=== PATIENT | male | born 1960 | race Caucasian/White ===

== ENCOUNTER 2019-03-08 14:58 | Inpatient (IN) | payer MEDICAID ==
[~2019-03-08] VITALS: Ht 185.4 cm; Wt 88.6 kg
[~2019-03-08 14:58] MED LIST: ASPI-1265 PO; ATOR10TA PO; CARV-50 PO; LISI-604 PO; NICO-687 TD; SPIR25TA5 PO
[2019-03-08] MEDS ORDERED: heparin 25,000 UNIT/250ml bag 250 ML IV SCH (15:16)
[2019-03-08] MEDS ORDERED: diltiazem 5mg/ml 5ml inj. IV ONE (15:20)
[2019-03-08] MEDS ORDERED: heparin 10,000 units/1 ML INJ IV ONE ×2 (15:20→15:30)
[2019-03-08] MEDS ORDERED: heparin 10,000 units/1 ML INJ IV PRN (15:20)
[2019-03-08] MEDS ORDERED: ondansetron/PF 4mg/2ml inj IV PRN (15:45)
[2019-03-08] MEDS ORDERED: morphine 2 MG/ML inj. syringe IV PRN (15:45)
[2019-03-08] MEDS ORDERED: magnesium hydroxide 30ml (MOM) UD suspension PO PRN (15:45)
[2019-03-08] MEDS ORDERED: acetaminophen 325mg tablet PO PRN (15:45)
[2019-03-08] MEDS ORDERED: mag hydrox/Alum hydrox/simeth 30ml oral suspension PO PRN (15:45)
[2019-03-08] MEDS ORDERED: HYDROcodone/acetaminophen 5mg/325mg tablet PO PRN (15:45)
[2019-03-08 15:53] LABS: PARTIAL THROMBOPLASTIN TIME 40 SECONDS (22-32)
[2019-03-08] MEDS: heparin 25,000 UNIT/250ml bag 250 ML IV SCH (16:01)
[2019-03-08 16:24] LABS: BASOPHILS % (AUTO) 0.2 % (0-1); EOSINOPHILS % (AUTO) 0.1 % (0-6); HEMATOCRIT 41.2 % (42.0-52.0); HEMOGLOBIN 13.9 g/dl (14.0-17.9); LYMPHOCYTES # (AUTO) 1.5 X10'3 (1.1-4.8); LYMPHOCYTES % (AUTO) 15.4 % (21-51); MEAN CORPUSCULAR HEMOGLOBIN 33.8 PG (27.0-31.0); MEAN CORPUSCULAR HGB CONC 33.9 g/dL (33.0-36.5); MEAN CORPUSCULAR VOLUME 99.7 FL (78-98); MEAN PLATELET VOLUME 10.7 FL (7.4-10.4); MONOCYTES # (AUTO) 1.3 X10'3 (0-0.9); MONOCYTES % (AUTO) 13.2 % (2-12); NEUTROPHILS # (AUTO) 7.1 X10'3 (1.8-7.7); NEUTROPHILS % (AUTO) 71.1 % (42-75); PLATELET COUNT 123 X10'3 (140-440); RED BLOOD COUNT 4.13 X10'6 (4.70-6.10); RED CELL DISTRIBUTION WIDTH 13.9 % (11.5-14.5)
--- NOTE | 2019-03-08 16:30 | NUR ---
Patient in room ED 6. I have received report from Vinny RN (ED) and had the opportunity to ask questions and assume patient care.
[2019-03-08] MEDS ORDERED: DIGO125T78 PO (16:35)
[2019-03-08] MEDS ORDERED: ASPI-611 PO (16:35)
[2019-03-08] MEDS ORDERED: NICO-687 TOP (16:35)
[2019-03-08] MEDS ORDERED: CARV25TA2 PO (16:35)
[2019-03-08] MEDS ORDERED: LISI10TA4 PO (16:35)
--- NOTE | 2019-03-08 16:45 | NUR ---
Pt arrived to unit. Pt oriented to room and call light.
[2019-03-08 17:00] VITALS: BP 106/75
[2019-03-08] MEDS: normal saline 1000ml 1,000 ML IV SCH (17:31)
[2019-03-08 17:50] LABS: LARGE PLATELETS FEW; PLATELET ESTIMATE DECREASED
[2019-03-08 18:00] VITALS: BP 110/73
--- NOTE | 2019-03-08 18:36 | NUR ---
Problems reprioritized. Patient report given, questions answered & plan of care reviewed with Lidya GARDUNO.
--- NOTE | 2019-03-08 18:37 | NUR ---
Patient in room PCU 3012. I have received report from Fabrice GARDUNO and had the opportunity to ask questions and assume patient care.
[2019-03-08] MEDS ORDERED: carVEDilol 12.5mg tablet PO SCH (20:00)
--- NOTE | 2019-03-08 21:53 | NUR ---
PTT @ 2200 was 75. Therapeutic range, no change. Still @15ml/hr
[2019-03-08 22:00] VITALS: BP 103/73
[2019-03-09 02:00] VITALS: BP 106/72
[2019-03-09 03:42] LABS: BASOPHILS # (AUTO) 0.1 X10'3 (0-0.2); BASOPHILS % (AUTO) 0.6 % (0-1); EOSINOPHILS % (AUTO) 0.2 % (0-6); HEMATOCRIT 37.7 % (42.0-52.0); HEMOGLOBIN 12.9 g/dl (14.0-17.9); LYMPHOCYTES % (AUTO) 20.9 % (21-51); MEAN CORPUSCULAR HGB CONC 34.4 g/dL (33.0-36.5); MEAN CORPUSCULAR VOLUME 98.8 FL (78-98); MONOCYTES % (AUTO) 11.1 % (2-12); NEUTROPHILS # (AUTO) 6.3 X10'3 (1.8-7.7); NEUTROPHILS % (AUTO) 67.2 % (42-75); PLATELET COUNT 110 X10'3 (140-440); RED BLOOD COUNT 3.81 X10'6 (4.70-6.10); RED CELL DISTRIBUTION WIDTH 13.8 % (11.5-14.5); WHITE BLOOD COUNT 9.4 X10'3 (4.5-11.0)
[2019-03-09 03:55] LABS: ALBUMIN 2.4 G/DL (3.4-5.0); ANION GAP 6 (8-16); BLOOD UREA NITROGEN 13 MG/DL (7-18); BUN/CREATININE RATIO 11.4 (5.4-32.0); CALCIUM 8.3 MG/DL (8.5-10.1); CHLORIDE 103 MMOL/L (99-107); CREATININE 1.14 MG/DL (0.60-1.10); GLUCOSE 131 MG/DL (70-104); POTASSIUM 3.6 MMOL/L (3.5-5.1); SODIUM 133 MMOL/L (135-145); TOTAL CARBON DIOXIDE 24.3 MMOL/L (24-32); eGFR 66 ML/MIN
[2019-03-09 06:00] VITALS: BP 99/65
--- NOTE | 2019-03-09 06:07 | NUR ---
Problems reprioritized. Patient report given, questions answered & plan of care reviewed with Fabrice GARDUNO.
--- NOTE | 2019-03-09 06:10 | NUR ---
Patient in room PCU 3012. I have received report from Lidya GARDUNO and had the opportunity to ask questions and assume patient care.
[2019-03-09] MEDS: normal saline 1000ml 1,000 ML IV SCH (07:43)
[2019-03-09] MEDS: heparin 25,000 UNIT/250ml bag 250 ML IV SCH (07:46)
[2019-03-09] MEDS: aspirin 81mg tablet.DR PO SCH (07:48)
[2019-03-09] MEDS: nicotine 21mg patch - 24 hr TD SCH (07:56)
[2019-03-09] MEDS: lisinopril 10 MG tablet PO SCH (08:00)
[2019-03-09] MEDS: digoxin 125mcg (0.125mg) tablet PO SCH (08:42)
[2019-03-09] MEDS ORDERED: carvedilol 6.25mg tablet PO ONE (09:55)
[2019-03-09 11:00] VITALS: BP 90/58
[2019-03-09] MEDS ORDERED: albuterol 2.5 MG/3 ML nebule NEB PRN (12:05)
[2019-03-09 15:00] VITALS: BP 110/67
[2019-03-09 18:00] VITALS: BP 114/75
--- NOTE | 2019-03-09 18:10 | NUR ---
Problems reprioritized. Patient report given, questions answered & plan of care reviewed with Tenisha GARDUNO.
--- NOTE | 2019-03-09 20:00 | NUR ---
pt has no INR lab value, will be waiting for IRN before giving coumadin
[2019-03-09] MEDS: carvedilol 6.25mg tablet PO SCH (20:13)
[2019-03-09] MEDS ORDERED: warfarin 5mg tablet PO ONE ×2 (21:00→23:10)
[2019-03-09 22:00] VITALS: BP 94/70
--- NOTE | 2019-03-09 22:00 | NUR ---
PTT DVT @2200 was 45 which is therapeutic, no change in rate, heparin still running@ 1500
[2019-03-10] VITALS (8 sets, daily range): BP systolic 80–115; BP diastolic 50–78
[2019-03-10] MEDS: heparin 25,000 UNIT/250ml bag 250 ML IV SCH ×3 (01:21→17:16)
[2019-03-10 05:14] LABS: BASOPHILS % (AUTO) 0.3 % (0-1); EOSINOPHILS % (AUTO) 0.4 % (0-6); HEMATOCRIT 38.2 % (42.0-52.0); HEMOGLOBIN 13.1 g/dl (14.0-17.9); LYMPHOCYTES # (AUTO) 1.8 X10'3 (1.1-4.8); LYMPHOCYTES % (AUTO) 21.3 % (21-51); MEAN CORPUSCULAR HEMOGLOBIN 34.3 PG (27.0-31.0); MEAN CORPUSCULAR HGB CONC 34.4 g/dL (33.0-36.5); MEAN CORPUSCULAR VOLUME 99.8 FL (78-98); MEAN PLATELET VOLUME 10.6 FL (7.4-10.4); MONOCYTES # (AUTO) 1.2 X10'3 (0-0.9); MONOCYTES % (AUTO) 13.6 % (2-12); NEUTROPHILS # (AUTO) 5.5 X10'3 (1.8-7.7); NEUTROPHILS % (AUTO) 64.4 % (42-75); PLATELET COUNT 127 X10'3 (140-440); RED BLOOD COUNT 3.83 X10'6 (4.70-6.10); RED CELL DISTRIBUTION WIDTH 13.5 % (11.5-14.5); WHITE BLOOD COUNT 8.5 X10'3 (4.5-11.0)
[2019-03-10 05:22] LABS: ALBUMIN 2.5 G/DL (3.4-5.0); ANION GAP 7 (8-16); BLOOD UREA NITROGEN 11 MG/DL (7-18); BUN/CREATININE RATIO 10.3 (5.4-32.0); CALCIUM 8.8 MG/DL (8.5-10.1); CHLORIDE 101 MMOL/L (99-107); CREATININE 1.07 MG/DL (0.60-1.10); GLUCOSE 86 MG/DL (70-104); POTASSIUM 4.2 MMOL/L (3.5-5.1); SODIUM 134 MMOL/L (135-145); TOTAL CARBON DIOXIDE 26.4 MMOL/L (24-32); eGFR 71 ML/MIN
--- NOTE | 2019-03-10 06:00 | NUR ---
PTT @0500 was 31, rate leslie to 1800, and rebolus of 7000 units
--- NOTE | 2019-03-10 06:28 | NUR ---
Patient in room PCU 3012. I have received report from LAUREEN Steven and had the opportunity to ask questions and assume patient care.
[2019-03-10] MEDS: nicotine 21mg patch - 24 hr TD SCH (07:34)
[2019-03-10] MEDS: carvedilol 6.25mg tablet PO SCH ×2 (07:34→20:25)
[2019-03-10] MEDS: digoxin 125mcg (0.125mg) tablet PO SCH (07:34)
[2019-03-10] MEDS: lisinopril 10 MG tablet PO SCH (07:34)
[2019-03-10] MEDS: aspirin 81mg tablet.DR PO SCH (07:34)
--- NOTE | 2019-03-10 11:50 | NUR ---
okay with BP 89/59, wants us to gather orthostatics on patient.
--- NOTE | 2019-03-10 13:58 | NUR ---
PTT 75 no rate change needed.
--- NOTE | 2019-03-10 14:17 | NUR ---
PAGER ID: [phone] MESSAGE: [id number] Herb Burtazam: Patient ambulated 300ft, orthostatic vitals were good. Also, do you want the heparin gtt continued to bridge the coumadin, or do you want it off? LAUREEN Lujan Ext [phone]
--- NOTE | 2019-03-10 18:04 | NUR ---
Problems reprioritized. Patient report given, questions answered & plan of care reviewed with LAUREEN Vance.
--- NOTE | 2019-03-10 18:18 | NUR ---
Patient in room PCU 3012. I have received report from Tai GARDUNO and had the opportunity to ask questions and assume patient care. Patient is sleeping and is presently on a heparin drip. Will continue to monitor slowly.
--- NOTE | 2019-03-10 20:14 | NUR ---
Patient stated he had trouble sleeping last night and would like a sleep aid tonight. Called Dr. Byers, new orders for Melatonin 6mg QHS for insomnia.
[2019-03-10] MEDS: apixaban 5mg tablet PO SCH (20:25)
[2019-03-10] MEDS ORDERED: warfarin 5mg tablet PO ONE (21:00)
[2019-03-10] MEDS ORDERED: Melatonin 3mg tablet PO SCH (21:00)
[2019-03-11 03:00] VITALS: BP 90/63
[2019-03-11 05:23] LABS: BASOPHILS % (AUTO) 0.4 % (0-1); EOSINOPHILS % (AUTO) 0.6 % (0-6); HEMATOCRIT 37.7 % (42.0-52.0); LYMPHOCYTES # (AUTO) 1.7 X10'3 (1.1-4.8); LYMPHOCYTES % (AUTO) 24.6 % (21-51); MEAN CORPUSCULAR HEMOGLOBIN 34.2 PG (27.0-31.0); MEAN CORPUSCULAR HGB CONC 34.6 g/dL (33.0-36.5); MEAN CORPUSCULAR VOLUME 98.9 FL (78-98); MEAN PLATELET VOLUME 10.4 FL (7.4-10.4); MONOCYTES # (AUTO) 0.9 X10'3 (0-0.9); MONOCYTES % (AUTO) 12.7 % (2-12); NEUTROPHILS # (AUTO) 4.2 X10'3 (1.8-7.7); NEUTROPHILS % (AUTO) 61.7 % (42-75); PLATELET COUNT 154 X10'3 (140-440); RED BLOOD COUNT 3.81 X10'6 (4.70-6.10); RED CELL DISTRIBUTION WIDTH 13.2 % (11.5-14.5); WHITE BLOOD COUNT 6.7 X10'3 (4.5-11.0)
[2019-03-11 05:43] LABS: ALBUMIN 2.6 G/DL (3.4-5.0); ANION GAP 10 (8-16); BLOOD UREA NITROGEN 14 MG/DL (7-18); BUN/CREATININE RATIO 12.4 (5.4-32.0); CALCIUM 9.3 MG/DL (8.5-10.1); CHLORIDE 101 MMOL/L (99-107); CREATININE 1.13 MG/DL (0.60-1.10); GLUCOSE 91 MG/DL (70-104); POTASSIUM 4.2 MMOL/L (3.5-5.1); SODIUM 137 MMOL/L (135-145); TOTAL CARBON DIOXIDE 25.6 MMOL/L (24-32); eGFR 66 ML/MIN
--- NOTE | 2019-03-11 06:47 | NUR ---
Patient in room PCU 3012. I have received report from LAUREEN Vance and had the opportunity to ask questions and assume patient care. Patient asleep in bed and in no acute distress. Will continue to monitor.
--- NOTE | 2019-03-11 06:48 | NUR ---
Patient in room PCU 3012. I have received report from Pinky GARDUNO, and had the opportunity to ask questions and assume patient care. Patient resting comfortably in bed. Shirin Moran, Student RN
[2019-03-11 07:00] VITALS: BP 95/63
[2019-03-11] MEDS: nicotine 21mg patch - 24 hr TD SCH (08:00)
[2019-03-11] MEDS: apixaban 5mg tablet PO SCH (08:26)
[2019-03-11] MEDS: aspirin 81mg tablet.DR PO SCH (08:26)
[2019-03-11] MEDS: lisinopril 10 MG tablet PO SCH (08:30)
[2019-03-11] MEDS: digoxin 125mcg (0.125mg) tablet PO SCH (08:31)
[2019-03-11] MEDS: carvedilol 6.25mg tablet PO SCH (08:32)
[2019-03-11] MEDS ORDERED: APIX5TAB3 PO (09:12)
[2019-03-11] MEDS ORDERED: CARV6.253 PO (09:12)
[2019-03-11 11:00] VITALS: BP 84/59
--- NOTE | 2019-03-11 11:40 | NUR ---
Patient stable for discharge per MD orders. All discharge instructions provided to patient and all questions answered. New prescriptions called into [facility] in [place]. Patient educated on s/s of bleeding due to anticoagulation therapy. Patient educated on smoking cessation. Patient to follow up with primary care provider in 1 week. PIV discontinued - cannula intact. Telemetry monitoring discontinued. All patient belongings packed up and sent with patient in private vehicle to home. Patient walked to [facility], accompanied by RN and family.
--- NOTE | 2019-03-11 12:29 | NUR ---
Student documentation: I have reviewed and agree with all interventions, assessments performed and documented by SN Shirin. Student Medication Administration: For this medication-pass time frame, all medication were reviewed, dispensed, administered and documented per hospital policy by SN Shirin..
== END 2019-03-11 11:53 | disposition home or self-care (01) | DRG 134 ==
LOC: ER 14:59 → ED HOLD 15:44 → PCU 3S 17:59
PROVIDERS: ADMIT Family Medicine; ATTEND Hospitalist
DX: I26.99 Other pulmonary embolism without acute cor pulmonale (principal); I11.0 Hypertensive heart disease with heart failure; I50.9 Heart failure, unspecified; F17.210 Nicotine dependence, cigarettes, uncomplicated; I25.10 Atherosclerotic heart disease of native coronary artery without angina pectoris; I48.20 Chronic atrial fibrillation, unspecified; M54.12 Radiculopathy, cervical region; J44.9 Chronic obstructive pulmonary disease, unspecified; Z86.73 Personal history of transient ischemic attack (TIA), and cerebral infarction without residual deficits; Z95.1 Presence of aortocoronary bypass graft
CPT/HCPCS: 36415; 80048; 83880; 84484; 85025; 85610; 85730; 87081; 93005; 93306; 97162; 99291; G0378; J1644; J3490; J7030